=== PATIENT | male | born 1970 | race Caucasian/White ===

== ENCOUNTER 2024-04-28 12:11 | Inpatient (IN) ==
[~2024-04-28 12:11] MED LIST: NS 0.45% 1000 ml BAG 1,000 ML IV SCH; Naloxone 0.4 mg VIAL 0.4 mg/ml 1 ml VIAL IV PRN; Ondansetron 4 mg VIAL 2 MG/ML 2 ml VIAL IV PRN
[2024-04-28] MEDS ORDERED: ceFAZolin *3* GM in NS PREMIX 3 GM/100 ML BAG IV ONE (13:05)
[2024-04-28] MEDS ORDERED: Heparin 5000 UNITS/ML 1 mL VIAL ONE (13:05)
[2024-04-28 13:56] LABS: Rapid COVID-19 Molecular Undetected (Undetected)
[2024-04-28] MEDS ORDERED: Midazolam 2 mg/2 ml VIAL 1 mg/ml 2 ml VIAL (2 mg) ONE (14:40)
[2024-04-28] MEDS ORDERED: Rocuronium 50 mg VIAL 10 mg/ml 5 ml VIAL (50 mg) ONE ×2 (14:40→15:31)
[2024-04-28] MEDS ORDERED: Propofol 10 MG/ML 20 ML BTL ONE (14:41)
[2024-04-28] MEDS ORDERED: Dexamethasone IV 4 MG/ML VIAL 1 ml VIAL ONE (14:41)
[2024-04-28] MEDS ORDERED: fentaNYL 250 mcg/5 ml 50 MCG/ML 5 ml VIAL (250 MCG) ONE (14:41)
[2024-04-28] MEDS ORDERED: Lidocaine 2% PF 5 ML VIAL ONE (14:41)
[2024-04-28] MEDS ORDERED: Ondansetron 4 mg VIAL 2 MG/ML 2 ml VIAL ONE (14:41)
[2024-04-28] MEDS ORDERED: Methylene Blue 1% (ANTIDOTE) 10 MG/ML 10 ML SDV VIAL IVPB ONE (15:10)
[2024-04-28] MEDS ORDERED: Bupivacaine 0.25% EPI 200,000 30 ML SDV ONE (15:10)
[2024-04-28] MEDS ORDERED: HYDROmorphone 0.5 MG/0.5 ML SYRINGE ONE ×2 (16:22→16:37)
[2024-04-28] MEDS ORDERED: HYDROcodone/ACET. 7.5/325 LIQ 15 ML UDC PO PRN ×2 (17:59)
[2024-04-28] MEDS ORDERED: HYDROmorphone 0.5 MG/0.5 ML SYRINGE IV SLOW PU PRN (17:59)
[2024-04-28] MEDS ORDERED: fentaNYL 100 mcg/2 ml 50 MCG/ML VIAL ONE ×2 (18:58→19:26)
[2024-04-28] MEDS: fentaNYL 100 mcg/2 ml 50 MCG/ML VIAL IV PRN (19:00)
[2024-04-28] MEDS: Lactated Ringers 1000 ml BAG 1,000 ML IV SCH ×2 (20:42→20:57)
[2024-04-28] MEDS: Buffered Lidocaine 1% SYRIN 1 ml INTRADERM ONE (20:43)
[2024-04-28] MEDS: Acetaminophen IV 1 GM/100ML 1,000 MG/100 ML BAG IV ONE (20:44)
[2024-04-29] MEDS: Heparin 5000 UNITS/ML 1 mL VIAL SUBCUT SCH (00:03)
[2024-04-29] MEDS: D5W 1/2 NS KCl 20 meq 1000 ml 1,000 ML IV SCH (16:45)
[2024-04-30 10:13] VITALS: BP 126/88
== END 2024-04-30 12:40 | disposition home or self-care (01) | DRG 621 ==
LOC: AA 12:11 → SSU 19:56
PROVIDERS: ADMIT Surgery; ATTEND Surgery